=== PATIENT | male | born 1940 | race Caucasian/White ===

== ENCOUNTER 2016-10-31 15:27 | Emergency (ER) | payer MEDICARE, BC ==
[2016-10-31 15:54] VITALS: TEMP 98.4
--- NOTE | 2016-10-31 16:36 | ED.PDOC ---
History of Present Illness - General Chief Complaint: Eye Problems Stated Complaint: possible glass in left eye Time Seen by Provider: 10/31/16 16:33 Source: patient, RN notes reviewed Exam Limitations: no limitations - History of Present Illness Initial Comments: Herbert Peña stated that he was replacing a light bulb then it broke felt something got into his right eye and has flush it with water prior to coming here Denies blurry vision or pain Timing/Duration: abrupt, this afternoon Severity: mild EENT Location: eye (R) Prearrival Treatment: flushing eyes Presenting Symptoms: felt something got into right eye Improving Factors: nothing Worsening Factors: nothing Associated Symptoms: denies symptoms Allergies/Adverse Reactions: Allergies Tuna Flavor Allergy (Verified 12/22/15 02:44) Allergic to tuna Tuna Allergy (Uncoded 12/22/15 07:51) Home Medications: Ambulatory Orders Erythromycin Ophth Oint 1 applic BOTH_EYES BEDTIME 12/20/15 Propranolol HCl 10 mg PO TID PRN 12/20/15 Sildenafil Citrate [Viagra] 100 mg PO PRN PRN 12/20/15 Tramadol HCl 50 mg PO Q4H PRN 12/20/15 Azithromycin Tab [Zithromax Tab] 250 mg PO Q24H #5 tab 12/22/15 levoFLOXacin [Levaquin] 500 mg PO QAM #10 tab 12/22/15 Review of Systems - Review of Systems Constitutional: States: no symptoms reported EENTM: States: see HPI Respiratory: States: no symptoms reported Cardiology: States: no symptoms reported Gastrointestinal/Abdominal: States: no symptoms reported Musculoskeletal: States: no symptoms reported Past Medical History (General) - Patient Medical History Hx Seizures: No Hx Stroke: No Hx Dementia: No Hx Asthma: No Hx of COPD: No Hx Cardiac Disorders: No Hx Congestive Heart Failure: No Hx Pacemaker: No Hx Hypertension: Yes Hx Thyroid Disease: No Hx Diabetes: No Hx Gastroesophageal Reflux: No Hx Renal Disease: No Hx Cancer: Yes - skin Hx of HIV: No Hx Hepatitis C: No Hx MRSA: No Surgical History: other - Vaccination History Hx Tetanus, Diphtheria Vaccination: Yes Hx Influenza Vaccination: No Hx Pneumococcal Vaccination: Yes - Social History Hx Tobacco Use: No Hx Chewing Tobacco Use: No Hx Alcohol Use: No Hx Substance Use: No Hx Substance Use Treatment: No Hx Depression: No Hx Physical Abuse: No Hx Emotional Abuse: No Hx Suspected Abuse: No Family Medical History - Family History Mother Family History: Unknown Living Status: Physical Exam - Physical Exam General Appearance: Alert, Comfortable, No apparent distress Eye Exam: bilateral normal, bilateral other - unable to read eye chart but able to see print closer Ear Exam: bilateral ear: auricle normal, canal normal, TM normal Nasal Exam: normal inspection Throat Exam: normal mouth inspection, pharynx normal Neck: non-tender, full range of motion, supple, normal inspection, trachea midline Cardiovascular/Respiratory: regular rate, rhythm, no M/R/G, normal breath sounds Abdominal Exam: non-tender, no organomegaly Neurologic: alert, normal mood/affect, oriented x 3 Progress - Progress Progress: 10/31/16 16:38 Vital Signs - 8 hr 10/31/16 15:30 Temperature 98.4 F Pulse Rate [ 85 RIGHT BRACHIAL] Respiratory 16 Rate Blood Pressure 178/95 [RIGHT BRACHIAL ] O2 Sat by Pulse 85 L Oximetry - Results/Orders Results/Orders: Right eye irrigated with eyewash then alcaine drops to right eye with fluorescein testing no dye uptake was noted conjunctival cul de sac no foreign body noted.Left orbit x ray no radioopaque fb - EKG/XRAY/CT XRAY: orbit no fb Departure - Departure Clinical Impression: Irritation of left eye Time of Disposition: 17:51 Disposition: Discharge to Home or Self Care Condition: Fair Departure Forms: ED Discharge - Pt. Copy, Patient Portal Self Enrollment Referrals: Tomas Perry MD [Primary Care Provider] - 1-2 Weeks Home Medications: Ambulatory Orders Erythromycin Ophth Oint 1 applic BOTH_EYES BEDTIME 12/20/15 Propranolol HCl 10 mg PO TID PRN 12/20/15 Sildenafil Citrate [Viagra] 100 mg PO PRN PRN 12/20/15 Tramadol HCl 50 mg PO Q4H PRN 12/20/15 Azithromycin Tab [Zithromax Tab] 250 mg PO Q24H #5 tab 12/22/15 levoFLOXacin [Levaquin] 500 mg PO QAM #10 tab 12/22/15
[2016-10-31 16:48] VITALS: BP 160/90; O2SAT 97
--- NOTE | 2016-10-31 17:00 | RAD ---
PROCEDURE: XR ORBITS COMPLETE 4 OR MORE VIEWS CLINICAL HISTORY: 75 years Male possible FB COMPARISON: None. TECHNIQUE: Three views of the orbits. FINDINGS: Dental hardware is visualized. No radiopaque foreign bodies are visualized over the region of the orbits. IMPRESSION: No radiopaque foreign body is identified. Electronically signed by: Tunde Portillo MD 10/31/2016 4:59 PM CDT
== END 2016-10-31 17:59 | disposition home or self-care (01) ==
LOC: ER 15:27
DX: H57.8 Other specified disorders of eye and adnexa (principal); I10 Essential (primary) hypertension; Z85.828 Personal history of other malignant neoplasm of skin; Z91.018 Allergy to other foods

== ENCOUNTER → 2017-08-13 | Outpatient (CLI) | payer MEDICARE | LOC: GMAB 16:28 | PROVIDERS: ATTEND Family Medicine | DX: I10 Essential (primary) hypertension (principal); Z12.5 Encounter for screening for malignant neoplasm of prostate | CPT/HCPCS: 84443; G0103 ==

== ENCOUNTER 2019-09-08 11:27 | Inpatient (IN) | payer MEDICARE ==
--- NOTE | 2019-09-08 12:46 | RAD ---
EXAM DESCRIPTION: Chest,1 View CLINICAL HISTORY: 78 years Male, syncope COMPARISON: 12/22/2015. TECHNIQUE: AP radiograph of the chest was obtained. FINDINGS: Trachea is midline.The cardiomediastinal silhouette is normal in size. The pulmonary vasculature is within normal limits. Left basilar atelectasis. Possible small left pleural effusion. IMPRESSION: Left basilar atelectasis with possible small effusion. Electronically signed by: Tatyana Rosado MD 09/08/2019 12:45 PM CDT
--- NOTE | 2019-09-08 12:48 | CT ---
EXAM DESCRIPTION: Head CLINICAL HISTORY: syncope COMPARISON: None available TECHNIQUE: Contiguous axial images through the head were obtained without intravenous contrast administration. Sagittal and coronal reconstructions were reviewed. FINDINGS: No evidence of acute major vascular territorial infarct or intraparenchymal hemorrhage. No intra-axial or extra-axial fluid collections are identified. The ventricles and cisterns appear normal in caliber. The sella and suprasellar regions appear normal. The structures of the posterior fossa are intact. The globes are intact bilaterally. The visualized paranasal sinuses and mastoid air cells are well-aerated. Review of the bones demonstrates no gross instability. IMPRESSION: No CT evidence of acute intracranial process. This exam was performed according to our departmental dose-optimization program, which includes automated exposure control, adjustment of the mA and/or kV according to patient size and/or use of iterative reconstruction technique. Electronically signed by: Tatyana Rosado MD 09/08/2019 12:46 PM CDT
[2019-09-08] MEDS ORDERED: SODIUM CHLORIDE 0.9% 1000ML 1,000 ML IVS ONE (13:12)
[2019-09-08] MEDS ORDERED: PROMETHAZINE HCL INJ 25 MG in SODIUM CHLORIDE 0.9% 50ML 50 ML IVPB ONE (13:21)
[2019-09-08] MEDS ORDERED: PIPERACILLIN/TAZOBACTAM 3.375 GM in SODIUM CHLORIDE 0.9% 100ML 100 ML IVPB ONE (13:23)
--- NOTE | 2019-09-08 13:37 | ED.PDOC ---
History of Present Illness - General Chief Complaint: Syncope/Near Syncope Stated Complaint: syncope Time Seen by Provider: 09/08/19 11:53 Source: patient Exam Limitations: no limitations - History of Present Illness Initial Comments: The patient is a 78-year-old male presented emergency room secondary to a syncopal episode this morning. He reports it occurred while he was standing outside talking to his friend. He had a breakfast already. He did feel dizzy prior. He did not injure anything. He does have some chronic neck pain primarily to the left that is been present for several years. No known history of any carotid disease or valvular disease. No previous strokes. He is not showing any focal neurological deficits. He is pleasant and cooperative. Tilt vital signs are negative though his blood pressures are somewhat low normal for his age anyway. The patient has had significant urinary tract infections in the past. No chest pain or shortness of breath. No previous episodes of syncope but he has had a couple of dizzy episodes of the last 24 to 36 hours. He reports feeling increased fatigue and malaise over the last 3 days. No real urinary symptoms. He reports that he was out for less than a minute. Timing/Duration: momentarily Severity: moderate Improving Factors: nothing Worsening Factors: nothing Associated Symptoms: malaise, syncope Allergies/Adverse Reactions: Allergies Tuna Flavor Allergy (Verified 12/22/15 02:44) Allergic to tuna Tuna Allergy (Uncoded 12/22/15 07:51) Home Medications: Ambulatory Orders Erythromycin Ophth Oint 1 applic BOTH_EYES BEDTIME 12/20/15 Propranolol HCl 10 mg PO TID PRN 12/20/15 Sildenafil Citrate [Viagra] 100 mg PO PRN PRN 12/20/15 Tramadol HCl 50 mg PO Q4H PRN 12/20/15 Azithromycin Tab [Zithromax Tab] 250 mg PO Q24H #5 tab 12/22/15 levoFLOXacin [Levaquin] 500 mg PO QAM #10 tab 12/22/15 Review of Systems - Review of Systems Constitutional: States: malaise EENTM: States: no symptoms reported Respiratory: States: no symptoms reported Cardiology: States: syncope Gastrointestinal/Abdominal: States: no symptoms reported Genitourinary: States: no symptoms reported Musculoskeletal: States: no symptoms reported Skin: States: no symptoms reported Neurological: States: no symptoms reported Endocrine: States: no symptoms reported All other Systems: No Change from Baseline Past Medical History (General) - Patient Medical History Hx Seizures: No Hx Stroke: No Hx Dementia: No Hx Asthma: No Hx of COPD: No Hx Cardiac Disorders: No Hx Congestive Heart Failure: No Hx Pacemaker: No Hx Hypertension: Yes Hx Thyroid Disease: No Hx Diabetes: No Hx Gastroesophageal Reflux: No Hx Renal Disease: No Hx Cancer: Yes - skin Hx of HIV: No Hx Hepatitis C: No Hx MRSA: No - Vaccination History Hx Tetanus, Diphtheria Vaccination: Yes Hx Influenza Vaccination: Yes Hx Pneumococcal Vaccination: Yes - Social History Hx Tobacco Use: No Hx Chewing Tobacco Use: No Hx Alcohol Use: No Hx Substance Use: No Hx Substance Use Treatment: No Hx Depression: No Hx Physical Abuse: No Hx Emotional Abuse: No Hx Suspected Abuse: No - Activities of Daily Living Hospice Agency (if applicable):: None - Female History Patient is a Female of Child Bearing Age (10 -59 yrs old): No - Triage Comment ED Triage Comment: pt voicing he passed out this morning for a short time, voices that he did not hit his head. pt voices he feels fine now. Family Medical History - Family History Mother Family History: Unknown Living Status: Physical Exam - Physical Exam General Appearance: Alert, Comfortable, No apparent distress Eye Exam: bilateral normal Ears, Nose, Throat: hearing grossly normal, normal ENT inspection, normal pharynx Neck: other - Mild left-sided chronic pain. He reports no new pain. Respiratory: lungs clear, normal breath sounds, no respiratory distress, no accessory muscle use Cardiovascular/Chest: normal peripheral pulses, regular rate, rhythm, no edema Peripheral Pulses: radial,right: 2+, radial,left: 2+ Gastrointestinal/Abdominal: non tender, soft Rectal Exam: deferred Back Exam: no CVA tenderness, no vertebral tenderness Extremity: normal range of motion - Given chronic arthritis, normal inspection, no pedal edema, normal capillary refill Neurologic: soft drink powder mixer II-XII nml as tested, no motor/sensory deficits, alert, normal mood/affect, oriented x 3 Skin Exam: normal color Comments: Vital Signs - 24 hr 09/08/19 09/08/19 09/08/19 11:30 11:40 11:42 Temperature 99.5 F 99.5 F 99.5 F Pulse Rate 83 Pulse Rate [ 83 89 94 H brachial] Respiratory 16 16 16 Rate Blood Pressure 129/60 120/62 126/64 [Left Arm] O2 Sat by Pulse 94 L 96 96 Oximetry 09/08/19 09/08/19 09/08/19 11:44 12:30 13:00 Temperature 99.5 F 100.7 F H Pulse Rate Pulse Rate [ 95 H 76 74 brachial] Respiratory 16 22 16 Rate Blood Pressure 125/61 131/60 115/61 [Left Arm] O2 Sat by Pulse 94 L 92 L 95 Oximetry Progress - Progress Progress: 09/08/19 13:39 The patient is a 78-year-old male presenting after a syncopal episode. Head CT, chest x-ray, telemetry monitoring, EKG are all reassuring. Echocardiogram is pending. PSA is pending. The patient does have a urinary tract infection and a elevated white blood cell count that is consistent with septicemia. Blood cultures and urine cultures are being done. The patient is starting on Zosyn. He was also given a liter of IV fluids. The patient will be admitted for continued care for the above issues. Continue telemetry monitoring. I would recommend for now ambulation with assistance given his recent syncopal episode. Consideration can also be given to carotid Dopplers sometime in the near future. Admitting for continued care. [place] [phone] - Results/Orders Results/Orders: Chest x-ray shows no overt fluid overload. No pneumothorax. No large pneumonia. There is some left lower lobe atelectasis with possible small effusion. EKG showed normal sinus rhythm at 85 bpm. Mild right axis deviation. Normal R wave progression. Criteria is present for LVH. No definitive ST segment or T wave changes indicative of acute ischemia otherwise. Normal QT interval. Echocardiogram is still pending. PSA is still pending. Laboratory Tests 09/08/19 09/08/19 09/08/19 12:00 12:00 12:00 WBC 21.6 H* RBC 4.23 L Hgb 13.9 L Hct 41.6 L MCV 98.4 H MCH 32.8 H MCHC 33.4 RDW 12.6 Plt Count 180 MPV 9.2 Absolute Neuts (auto) Not Reportable Absolute Lymphs (auto) Not Reportable Absolute Monos (auto) Not Reportable Absolute Eos (auto) Not Reportable Neutrophils % Not Reportable Neutrophils % (Manual) 89.0 H Lymphocytes % Not Reportable Lymphocytes % (Manual) 2.0 Monocytes % Not Reportable Monocytes % (Manual) 7.0 Eosinophils % Not Reportable Basophils % Not Reportable Band Neutrophils 2.0 Platelet Estimate Normal Polychromasia 1+ Macrocytosis 1+ PT 10.7 INR 1.08 PTT (SP) 27.9 Sodium 135 Potassium 3.8 Chloride 102 Carbon Dioxide 26 Anion Gap 10.8 L BUN 18 Creatinine 1.23 BUN/Creatinine Ratio 14.6 Random Glucose 160 H Serum Osmolality 275.4 Lactic Acid Calcium 9.8 Magnesium 2.0 Total Bilirubin 1.2 H AST 18 ALT 15 Alkaline Phosphatase 65 Creatine Kinase 17 L CK-MB (CK-2) 0.7 CK-MB (CK-2) % Not Reportable Troponin I 0.02 B-Natriuretic Peptide 69.9 Serum Total Protein 6.6 Albumin 3.8 Globulin 2.8 Albumin/Globulin Ratio 1.4 TSH 0.96 Urine Color Urine Appearance Urine pH Ur Specific [place] Urine Protein Urine Glucose (UA) Urine Ketones Urine Blood Urine Nitrite Urine Bilirubin Urine Urobilinogen Ur Leukocyte Esterase Urine RBC Urine WBC Ur Epithelial Cells Urine Bacteria 09/08/19 09/08/19 12:00 13:00 WBC RBC Hgb Hct MCV MCH MCHC RDW Plt Count MPV Absolute Neuts (auto) Absolute Lymphs (auto) Absolute Monos (auto) Absolute Eos (auto) Neutrophils % Neutrophils % (Manual) Lymphocytes % Lymphocytes % (Manual) Monocytes % Monocytes % (Manual) Eosinophils % Basophils % Band Neutrophils Platelet Estimate Polychromasia Macrocytosis PT INR PTT (SP) Sodium Potassium Chloride Carbon Dioxide Anion Gap BUN Creatinine BUN/Creatinine Ratio Random Glucose Serum Osmolality Lactic Acid 1.7 Calcium Magnesium Total Bilirubin AST ALT Alkaline Phosphatase Creatine Kinase CK-MB (CK-2) CK-MB (CK-2) % Troponin I B-Natriuretic Peptide Serum Total Protein Albumin Globulin Albumin/Globulin Ratio TSH Urine Color Yellow Urine Appearance Sl cloudy Urine pH 5.5 Ur Specific [place] 1.025 Urine Protein 30 Urine Glucose (UA) Negative Urine Ketones Negative Urine Blood Trace-intact H Urine Nitrite Negative Urine Bilirubin Negative Urine Urobilinogen 0.2 Ur Leukocyte Esterase Large H Urine RBC 1-3 Urine WBC >50 H Ur Epithelial Cells 0-1 Urine Bacteria 2+ H Departure - Departure Clinical Impression: Septicemia Syncope Qualifiers: Syncope type: unspecified Qualified Code(s): R55 - Syncope and collapse Urinary tract infection Qualifiers: Urinary tract infection type: acute cystitis Hematuria presence: without hematuria Qualified Code(s): N30.00 - Acute cystitis without hematuria Disposition: Admit Patient Condition: Poor Departure Forms: ED Discharge - Pt. Copy, Patient Portal Self Enrollment Referrals: Tomas Perry MD [Primary Care Provider] - 1-2 Weeks Home Medications: Ambulatory Orders Erythromycin Ophth Oint 1 applic BOTH_EYES BEDTIME 12/20/15 Propranolol HCl 10 mg PO TID PRN 12/20/15 Sildenafil Citrate [Viagra] 100 mg PO PRN PRN 12/20/15 Tramadol HCl 50 mg PO Q4H PRN 12/20/15 Azithromycin Tab [Zithromax Tab] 250 mg PO Q24H #5 tab 12/22/15 levoFLOXacin [Levaquin] 500 mg PO QAM #10 tab 12/22/15 Decision To Admit - Decistion To Admit Decision to Admit Reason: Medical Nature Decision to Admit Date: 09/08/19 Decision to Admit Time: 13:42
[2019-09-08] MEDS ORDERED: KCL 20MEQ/0.45% NS 1,000 ML IVS ONE ×3 (16:59→19:55)
[2019-09-08] MEDS ORDERED: SODIUM CHLORIDE 0.9% (FLUSH) 10 ML SYG IV PRN (17:00)
[2019-09-08] MEDS ORDERED: IV SET AND CAP CHANGE INJ INJ SCH (17:00)
[2019-09-08] MEDS ORDERED: ONDANSETRON INJ 4 MG/2 ML VIAL IV PRN (17:00)
[2019-09-08] MEDS ORDERED: PIPERACILLIN/TAZOBACTAM 3.375 GM VIAL IVPB ONE ×2 (19:04→21:47)
[2019-09-08] MEDS ORDERED: PROPRANOLOL HCL 20 MG TAB ONE (19:05)
[2019-09-08] MEDS ORDERED: SODIUM CHLORIDE 0.9% 100ML 100 ML IVPB ONE ×2 (19:07→21:47)
[2019-09-08] MEDS: PIPERACILLIN/TAZOBACTAM 3.375 GM in SODIUM CHLORIDE 0.9% 100ML 100 ML IVPB SCH (19:46)
[2019-09-08] MEDS: SODIUM CHLORIDE 0.9% (FLUSH) 10 ML SYG IV SCH (20:10)
[2019-09-08] MEDS: ENOXAPARIN SODIUM 40 MG/0.4 ML SYG SUBCU SCH (20:14)
[2019-09-08] MEDS ORDERED: PROPRANOLOL HCL 5 MG PO SCH (21:00)
[2019-09-08] MEDS ORDERED: KCL IVS ONE (21:04)
[2019-09-08] MEDS ORDERED: [UNRECOGNIZED DRUG - OTHER] IVS ONE (21:04)
--- NOTE | 2019-09-08 21:09 | PCM.H&P ---
History of Present Illnes - History of Present Illness Reason for Visit: Syncope with questionable LOC History of Present Illness: 78 yo male patient that presented to ER d/t weakness and unwitnessed loss of consciousness. He has had progressive weakness with syncopal episondes that have worsened over the last few weeks. He lives alone and has had difficulty getting around. Today he woke up slupped on the [place]. He does not remember falling or slipping, and he appears to have no obvious traumatic injuries. He also has a significant history of UTIs. Previously he saw Dr. Perry and has seen Dr. Valdez at [facility], but does not know who his PCP is and cannot remember the last time he saw a provider, but he thinks it was in January of last year, although records from [facility] reveal he saw Dr. Valdez in 03/2019. In ER he was found to have a UTI and his head CT was negative for any acute injury. Urine culture was done as well as blood cultures. He was given zosyn and was admitted in stable condition. - Past Medical History Cardiac: HTN [employer]: Dementia - essential tremors Gastrointestinal: GERD - Past Family History Family History: CVA - Past Social History Smoke: No Alcohol: None Drugs: None Lives: Alone Review of Systems - Review of Systems Constitutional: States: Weakness, Malaise. Denies: Fever, Chills Neurological: States: Weakness, Incoordination, Confusion, Other - syncope; essential tremors - Medications/Allergies Allergies/Adverse Reactions: Allergies Allergy/AdvReac Type Severity Reaction Status Date / Time Tuna Flavor Allergy Verified 09/08/19 15:07 Tuna Allergy Uncoded 12/22/15 07:51 Medications: Current Medications Propranolol 5mg qid Exam - Exam Vital Signs: Vital Signs (72 hours) 09/08/19 09/08/19 09/08/19 11:30 11:40 11:42 Temperature 99.5 F 99.5 F 99.5 F Pulse Rate 83 Pulse Rate [ 83 89 94 H brachial] Respiratory 16 16 16 Rate Blood Pressure 129/60 120/62 126/64 [Left Arm] O2 Sat by Pulse 94 L 96 96 Oximetry 09/08/19 09/08/19 09/08/19 11:44 12:30 13:00 Temperature 99.5 F 100.7 F H Pulse Rate Pulse Rate [ 95 H 76 74 brachial] Respiratory 16 22 16 Rate Blood Pressure 125/61 131/60 115/61 [Left Arm] O2 Sat by Pulse 94 L 92 L 95 Oximetry 09/08/19 09/08/19 09/08/19 14:00 15:00 15:05 Temperature 98.3 F 98.3 F 98.3 F Pulse Rate 69 78 Pulse Rate [ 69 78 65 brachial] Respiratory 16 16 16 Rate Blood Pressure 116/63 125/64 124/71 [Left Arm] O2 Sat by Pulse 96 96 97 Oximetry 09/08/19 09/08/19 15:11 19:00 Temperature 98.3 F 100.1 F H Pulse Rate Pulse Rate [ 65 71 brachial] Respiratory 16 16 Rate Blood Pressure 124/71 120/76 [Left Arm] O2 Sat by Pulse 97 98 Oximetry General: Alert, Cooperative - oriented to person only HEENT: Atraumatic, PERRLA, Mucous membr. moist/pink Lungs: Clear to auscultation Cardiovascular: Regular rate, No murmurs Abdomen: Normal bowel sounds, Soft, No tenderness Extremities: No clubbing, No cyanosis Skin: No rashes Neurological: Other - awake alert; gets confused easily; has a difficult time r ecounted the last few day to last few months; equal upper extremety strength, but unable to stand on his own; was found partially on bed and partially on floor and required assistance to get back in bed Psych/Mental Status: Mood NL Assessment/Plan - Assessment/Plan Assessment: 1. Sepsis r/t UTI with concerns for prostatitis. WBC on admit was 21,600 temp of 100.7 HR 95 2. Sycope withunwitness loss of consciousness. 3. High risk for Covid19 d/t age, elevated temp, and CXR 4. Gerd 5. HTN Plan: Patient has been admitted ot the hospital in stable condition. His home meds have been restarted and he will get fluids overnight. Will continue Zosyn and follow cultures. will need to speak with Dr. Vasquez, OMER, for recommendations on antibiotics and length of treatment. Lovenox started for DVT prophylaxis and PPI for PUD prophylaxis. [facility] services program associate consulted for discharge planning and Physical Therapy for safety.
[2019-09-08] MEDS: ACETAMINOPHEN 325 MG TAB PO PRN (23:00)
[2019-09-09] MEDS: PIPERACILLIN/TAZOBACTAM 3.375 GM in SODIUM CHLORIDE 0.9% 100ML 100 ML IVPB SCH ×4 (01:38→20:17)
[2019-09-09] MEDS: OMEPRAZOLE CAP 20 MG CAP PO SCH (05:49)
--- NOTE | 2019-09-09 06:53 | RAD ---
EXAM: XR Chest, 1 View CLINICAL HISTORY: The patient is 78 years old and is Male; leukocytosis TECHNIQUE: Single view of the chest. COMPARISON: September 08, 2019 12:14 PM. FINDINGS: Lungs: Retrocardiac consolidation and/or atelectasis, new. No pulmonary vascular congestion. Pleural space: No pneumothorax. Heart: The cardiac silhouette is enlarged versus artifact of AP technique. Cardiomediastinal silhouette is not significantly changed given the differences in technique. Mediastinum: See above. Bones/joints: The bones and joints are unchanged as visualized. Upper abdomen: No free air in the visualized upper abdomen. IMPRESSION: Retrocardiac consolidation and/or atelectasis, new. Electronically signed by: Cristal Bauman MD 09/09/2019 6:52 AM CDT
[2019-09-09] MEDS ORDERED: SODIUM CHL 0.9% 100ML MINI-BAG 100 ML IVPB ONE (07:38)
[2019-09-09] MEDS ORDERED: PIPERACILLIN/TAZOBACTAM 3.375 GM VIAL IVPB ONE (07:38)
[2019-09-09] MEDS ORDERED: PROPRANOLOL HCL 20 MG TAB ONE (08:35)
[2019-09-09] MEDS: PROPRANOLOL HCL 20 MG TAB PO SCH ×4 (09:09→20:22)
[2019-09-09] MEDS: SODIUM CHLORIDE 0.9% (FLUSH) 10 ML SYG IV SCH ×2 (09:09→20:22)
--- NOTE | 2019-09-09 10:54 | CT ---
EXAM DESCRIPTION: Abdomen/Pelvis w/wo Contrast: Computed Tomography. CLINICAL HISTORY: prostatitis? COMPARISON: CT abdomen November 2015. TECHNIQUE: Spiral-axial scans at 5 mm intervals through the abdomen and pelvis before and after 75 mL Optiray 320 nonionic IV contrast. No oral contrast. Coronal and sagittal 2.0 mm reconstructions. 5 mm Delayed helical-axial scans, liver through the pubic symphysis. No adverse reactions. Total Exam DLP 2365 mGy - cm. This exam was performed according to our departmental CT dose-optimization program which includes automated exposure control, adjustment of the mA and/or kV according to patient size and/or use of iterative reconstruction technique; to reduce radiation dose to as low as reasonably achievable (ALARA). FINDINGS: Lung bases and pleura: Small bilateral pleural effusions larger on the left. Bibasilar atelectasis. Liver, Stomach, Spleen, Adrenal Glands: 2.8 cm nonenhancing mass in the subcapsular medial segment of the left hepatic lobe with no calcifications, but protruding through the anterior capsule +50-55 Hounsfield units. Stable since the prior study. Right lobe borderline enlarged. Stomach slightly enlarged and distended but no gastroduodenal obstruction. Other solid organs are negative. Pancreas, Gallbladder, Ducts: Septated gallbladder. Duct and pancreas negative.. Kidneys and Ureters: Irregular regions of enhancement and nonenhancement in the left kidney with minimal stranding fatty stranding. This is not seen on the right kidney. But there is bilateral thickening in the paracolic gutters with fluid on the left. 6 cm dilated left renal pelvis. 4.8 cm cyst on the right. Cysts bilaterally. New 4 mm radiodense stone in the mid collecting system of the right kidney with no hydronephrosis. No radiodense stones in the left kidney but minimal hydronephrosis.. Moderate left hydroureter with increased distention proximal to distal, and abrupt transition from normal caliber to dilated proximal ureter distal to the dilated renal pelvis previously described. No significant change since the prior study. 1 cm stone in the dilated pelvis on the prior study no longer present. Right ureter contains IV contrast and is unremarkable.. Mesentery: Thickening of the pericolic fascia and gutters and fatty stranding left pararenal space as described. This has progressed slightly since the prior study. No free air or free fluid.. Pelvic Organs: Prostate is markedly enlarged with superior margin not as well-defined and inflammatory changes in the fat abutting the lateral and superior gland and the interface with the base of the urinary bladder. Irregular enhancement and central calcifications. Mass effect on the base of the urinary bladder. Volume is 60.7 mL. Dilated left ureterovesical junction is stable. Millimeters radiodense stone in the base of the urinary bladder may have been the larger stone seen in the dilated left renal pelvis on the prior study. Bladder is distended with wall thickening and capsule is slightly lobulated. No IV contrast on the delayed images. Right ureterovesical junction is unremarkable. No free fluid. Aorta: Atherosclerotic calcifications. Moderate ectasia. Small Bowel: No distended segments. Minimal gas. Terminal Ileum/Cecum: Negative. No inflammatory changes. Appendix not seen. Colon: Cecum and proximal colon distended by gas. Diverticula beginning in the mid: And continuing distally to the sigmoid colon. Minimal redundancy of the sigmoid colon. No complications. Spine and Bony Pelvis: Lumbar scoliosis and thoracolumbar spondylosis. Bilateral hip arthrosis and arthrosis in the SI joints. Abdominal Wall/Back Soft Tissues: Umbilical diastases but no incarcerated bowel. Bilateral lymph nodes abutting the inguinal canal with proximal right inguinal fatty hernia with no included bowel. IMPRESSION: 1. Marked enlargement of the prostate gland stable since the prior study, but new inflammatory changes in the fat around the superior and superior lateral margins of the gland and the interface with the urinary bladder, consistent with the clinical diagnosis. 2. Delayed and initial heterogeneous contrast enhancement in the left kidney and possible inflammatory changes in the left perirenal fat raises concern for pyelonephritis. Chronic left renal hydronephrosis and hydroureter since November 2015. Calculus in the dilated left renal pelvis on the prior study is now interpreted to be located in the gravity dependent urinary bladder base. Urinary bladder is distended. New 4 mm radiodense stone in the right kidney not obstructing. 3. Enlarging bilateral pleural effusion and increasing abdominal fluid since the prior study. 4. Chronic distal colon and sigmoid diverticulosis with no complications. 2.8 cm circumscribed mass in the medial segment left hepatic lobe protruding slightly through the hepatic capsule at the dome is stable. CRITICAL COMMUNICATION: The critical value was communicated directly by Dr. Comer via phone call, with Ms. Merlyn Esqueda RN-[employer]C [employer], at approximately 1040 hours, on September 09, 2019. Electronically signed by: Vidal Comer MD 09/09/2019 10:52 AM CDT
--- NOTE | 2019-09-09 14:34 | US ---
EXAM DESCRIPTION: Carotid Duplex: ULTRASOUND. CLINICAL HISTORY: 78 years Male syncope COMPARISON: CT scan of abdomen and pelvis from the same visit. TECHNIQUE: Transcutaneous scanning utilizing ball-scale and Doppler modes to evaluate the bilateral carotid systems and vertebral arteries. Percentage of diameter of stenosis or no stenosis recorded will be based upon NASCET criteria. FINDINGS: Peak systolic/end diastolic (CM-Sec) CCA Right 85/0 Left 72/8. ICA Right proximal 38/8, distal 84/20. Left proximal 48/10, Distal 51/9. Vertebral Right 38/8 Left 31/9. ECA (PS Only) Right 72 left 72. ICA/CCA peak systolic ratio: Right 1.0 Left 0.7 ICA/CCA end diastolic ratio: Right n/a Left 1.1 Vertebral arteries: antegrade flow. Comments: Minimal atherosclerotic calcifications bilateral common carotid bifurcations. IMPRESSION: 1. Doppler evaluation of the bilateral carotid systems and vertebral arteries shows no hemodynamically significant stenoses (less than 70%). 2. No significant amount of plaque in the carotid arteries bilaterally. Bilateral vertebral arteries showed antegrade-cephalad flow. Electronically signed by: Vidal Comer MD 09/09/2019 2:32 PM CDT
[2019-09-09] MEDS: ACETAMINOPHEN 325 MG TAB PO PRN (20:21)
[2019-09-09] MEDS: ENOXAPARIN SODIUM 40 MG/0.4 ML SYG SUBCU SCH (20:22)
[2019-09-09] MEDS: BIFIDOBACTERIUM INFANTIS 4 MG CAP PO SCH (22:04)
[2019-09-10] MEDS: PIPERACILLIN/TAZOBACTAM 3.375 GM in SODIUM CHLORIDE 0.9% 100ML 100 ML IVPB SCH ×4 (01:38→20:33)
[2019-09-10] MEDS: OMEPRAZOLE CAP 20 MG CAP PO SCH (06:05)
[2019-09-10] MEDS: PROPRANOLOL HCL 20 MG TAB PO SCH ×4 (08:51→20:34)
[2019-09-10] MEDS: BIFIDOBACTERIUM INFANTIS 4 MG CAP PO SCH ×2 (08:51→20:34)
[2019-09-10] MEDS: SODIUM CHLORIDE 0.9% (FLUSH) 10 ML SYG IV SCH ×2 (08:51→20:34)
--- NOTE | 2019-09-10 09:10 | PN ---
SUPERVISING PHYSICIAN: Lucius Vadlez MD DATE: 09/09/19 SUBJECTIVE: The patient is sitting up in his bed, feels much better than yesterday. His abdominal pain is gone and he said no nausea or vomiting. He has no shortness of breath. He denies chest pain. OBJECTIVE: VITAL SIGNS: Temperature 98, heart rate 64, blood pressure 110/65, respiratory rate 18, oxygen saturation 98% on room air. RESPIRATORY: Essentially clear to auscultation bilaterally. somewhat diminished at the bases. CARDIAC: Regular rate and rhythm. GI: Abdomen soft, nondistended, non-tender except he is slightly tender in the suprapubic area. Bowel sounds are positive. NEUROLOGIC: He is awake, alert, and oriented x3. LABORATORY: WBC has improved to 18,200 with hemoglobin 12.6, hematocrit of 37.7. Sodium is slightly low at 133 with potassium of 4.1, chloride 103. BUN is 22, creatinine has improved slightly to 1.16, magnesium 1.9, bilirubin 1.5. Total PSA is 20.19. Preliminary blood cultures show no growth at 24 hours. Urine culture is pending. CAROTIC ARTERY ULTRASOUND: 1. Doppler evaluation of the bilateral carotid systems and vertebral arteries show no hemodynamically significant stenosis. 2. No significant amount of plaque in the carotid arteries bilaterally. Bilateral vertebral arteries show integrate cephalad flow. RADIOLOGY: Chest x-ray shows retrocardiac consolidation and atelectasis that is new. ABDOMINAL/PELVIS CT: 1. Marked enlargement of prostate gland, stable since prior study but new inflammatory changes in the fat around the superior and superior lateral margins of the gland and the interface with the urinary bladder consistent with the clinical diagnosis. 2. Delayed and initial heterogeneous contrast enhancement of the left kidney and possible inflammatory changes in the left perirenal fat raises concerns for pyelonephritis. Chronic left renal hydronephrosis and hydroureter since November 2015. Calculus in the dilated left renal pelvis on the prior study is now interpreted to be located in the gravity dependent urinary bladder base. Urinary bladder is distended. New 4 mm radiodense stone is I the right kidney, nonobstructing. 3. Enlarging bilateral pleural effusion and increasing abdominal fluid since the prior study. 4. Chronic distal colon and sigmoid diverticulosis with no complications. 2.8 cm circumscribed mass in the medial segment of the left hepatic lobe protruding slightly through the hepatic capsule at the dome is stable. All other labs and films have been reviewed via the EMR. IMPRESSION: 1. Sepsis related to urinary tract infection with prostatitis. WBCs on admission were 21,600, [id number], heart rate 95. 2. Pyelonephritis with sepsis. 3, Syncope with unwitnessed loss of consciousness. His carotid sonogram is negative. 4. High risk for Covid-19 due to age and elevated temperature and chest x-ray. 5. Gastroesophageal reflux disease. 6. Hypertension. PLAN: We will continue present supportive care including his present antibiotics of Zosyn. He remains in isolation until his Covid-19 results are returned. There are moderate concerns for pneumonia and have encouraged good pulmonary hygiene including his incentive spirometry. At this point, we will continue with the Zosyn and monitor cultures as the become available. His labs will be repeated in the morning and we will continue monitor him closely and follow as needed. #[id number] [facility]
--- NOTE | 2019-09-10 16:42 | PN ---
SUPERVISING PHYSICIAN: Lucius Valdez MD DATE: 09/10/19 SUBJECTIVE: The patient is sitting up in bed, much more alert and oriented today. Nurse reports that he has walked in his room without difficulty. He can actually answer questions appropriately today. We discussed his discharge plan. He has no complaints of nausea, vomiting, diarrhea or constipation. He does have some diarrhea but that has improved. OBJECTIVE: VITAL SIGNS: Temperature 98.4, heart rate 68, blood pressure 131/64, respirations 18, oxygen saturation 96% on room air. RESPIRATORY: Essentially clear to auscultation bilaterally. CARDIAC: Regular rate and rhythm.. GI: Abdomen soft, nondistended, non-tender. Bowel sounds are positive. NEUROLOGIC: He is awake, alert, and oriented x3. LABORATORY: WBC has improved to 11,400 with hemoglobin 13, hematocrit of 38.9. Chemistries are unremarkable. Preliminary blood cultures show no growth at 48 hours. His rotavirus is negative. Stool was positive for fecal leukocytes. C- difficile was negative for antigen and toxin. Stool culture is pending. All other labs and films have been reviewed via the EMR. IMPRESSION: 1. Sepsis related to urinary tract infection with prostatitis. WBCs on admission were 21,600, [id number], heart rate 95. 2. Pyelonephritis with sepsis. 3, Syncope with unwitnessed loss of consciousness. His carotid sonogram is negative. 4. High risk for Covid-19 due to age and elevated temperature and chest x-ray. 5. Gastroesophageal reflux disease. 6. Hypertension. PLAN: We will continue present supportive care. Will await his Covid-19 results, although if patient is stable enough and has good clinical recovery, we can send him home for self-isolation as he said he does not have any contact with anyone. I have ordered labs for in the morning. He is improving well so no further testing will be needed at this point. Encouraged good pulmonary hygiene. We will continue to monitor his cultures. We will follow and treat as needed. #[id number] [facility]
[2019-09-10] MEDS: ENOXAPARIN SODIUM 40 MG/0.4 ML SYG SUBCU SCH (20:34)
[2019-09-11] MEDS: PIPERACILLIN/TAZOBACTAM 3.375 GM in SODIUM CHLORIDE 0.9% 100ML 100 ML IVPB SCH ×2 (01:37→07:34)
[2019-09-11] MEDS: OMEPRAZOLE CAP 20 MG CAP PO SCH (06:21)
[2019-09-11] MEDS: BIFIDOBACTERIUM INFANTIS 4 MG CAP PO SCH (09:13)
[2019-09-11] MEDS: PROPRANOLOL HCL 20 MG TAB PO SCH (09:13)
[2019-09-11] MEDS: SODIUM CHLORIDE 0.9% (FLUSH) 10 ML SYG IV SCH (09:13)
[2019-09-11 13:27] VITALS: BP 135/69; TEMP 98.4; O2SAT 97
--- NOTE | 2019-09-11 13:46 | DS ---
SUPERVISING PHYSICIAN: Lucius Valdez MD DISCHARGE DIAGNOSES: 1. Sepsis related to urinary tract infection with prostatitis. WBCs on admission were 21,600, [id number], heart rate 95. Urine culture has come back positive for enterococcus faecalis and it is pansensitive. 2. Pyelonephritis with sepsis. 3, Syncope with unwitnessed loss of consciousness. His carotid sonogram is negative. 4. High risk for Covid-19 due to age and elevated temperature and chest x-ray, still awaiting results. His chest x-ray is stable and he has had no temperature since admission. 5. Gastroesophageal reflux disease. 6. Hypertension. 7. Diarrhea that has improved with a history of constipation. 8. History of essential tremors, on propranolol. HISTORY OF PRESENT ILLNESS: This is a 78 year-old male patient who presented to the Emergency Room after complaining of weakness and an unwitnessed loss of consciousness. He has had progressive weakness with syncopal episodes that have worsened over the last few weeks. He lives alone and has had difficulty getting around. On the date of admission, he woke up slumped on the floor. He does not remember falling or slipping and there was no obvious traumatic injuries. He has a significant history of urinary tract infections. Previously he saw Dr. Perry as well as Dr. Hadley but at the time of admission, he did not know who his primary care physician was and could not remember the last time he saw a provider. He was quite confused but he did think his last physician visit was in January of last year. In the Emergency Room he was found to have a urinary tract infection and his head CT was negative for any acute injury. Urine culture was done as well as blood cultures. He was given Zosyn as well as fluids and was admitted to the Floor. HOSPITAL COURSE: The patient was admitted in stable condition. His home medications were restarted and he got fluids overnight, the Zosyn was continued and his cultures were followed. Lovenox was given for DVT prophylaxis and a PPI for ulcer prophylaxis. Clinically, he progressively improved over the next several days. It was found on his abdomen/pelvis CT that in addition to prostatitis and urinary tract infection he also had pyelonephritis. Covid-19 testing was ordered initially and at the time of discharge his results had not come back but he has not had a fever since admission. He did have a bout of diarrhea during his stay and stool studies were done, his C-difficile was negative. His rotavirus was negative. He was positive for fecal WBCs. He had good pulmonary hygiene including incentive spirometry. His diarrhea resolved. His WBCs normalized and he will be discharged home today in stable condition. LABORATORY: His WBCs were 21,600 and today are 10,200. Hemoglobin and hematocrit have been stable at 13.4 and 39.4 respectively. He continues to have a left shift on his differential but it has progressively improved. His electrolytes are unremarkable. At one point, his bilirubin was elevated as high at 1.5, today it is 0.6. His PSA was 20.19. Urinalysis showed trace of intact urine blood with a large amount of urine leukocyte esterase. Urine WBCs were greater than 50 and he had 2+ urine bacteria. His O&P stool study is pending. Stool culture is pending. Stool for occult blood was positive. Covid-19 is pending. His urine culture was positive for enterococcus faecalis and was pansensitive. His chest x-ray this morning showed a stable chest. Carotid artery ultrasound showed the followin. Doppler evaluation of bilateral carotid systems and vertebral arteries show no hemodynamically significant stenosis, less than 70%. 2. No significant amount of plaque in the carotid arteries bilaterally. Bilateral vertebral arteries show antegrade cephalad flow. Head CT was negative for any acute intracranial process. DISCHARGE PLAN: The patient will be discharged home in stable condition. He was able to ambulate around in his room without any problem. He was steady on his feet. He is to resume his previous diet and increase his activity as tolerated. He is to followup with Dr. Hadley via Telehealth visit on September 20, 2019 at 2:15 PM. He does understand it is a Telehealth visit. In addition to his home medications, he is to have Align twice a day as well as ciprofloxacin twice a day for 14 days. He is to return to the hospital and followup with Dr. Hadley for any problems or complications. DISCHARGE MEDICATIONS: 1. Propranolol. 2. Align. 3. Ciprofloxacin. #[id number] [facility]
== END 2019-09-11 14:17 | disposition home or self-care (01) | DRG 872 ==
LOC: ER 11:27 → MS 14:43 → OBSVTOIN 14:43 → MS 17:13
PROVIDERS: ADMIT Nurse Practitioner Acute Care; ATTEND Nurse Practitioner Acute Care
PROC: BW2110Z Computerized Tomography (CT Scan) of Abdomen and Pelvis using Low Osmolar Contrast, Unenhanced and Enhanced (ICD-10-PCS; principal; 2019-09-09)
DX: A41.9 Sepsis, unspecified organism (principal); N12 Tubulo-interstitial nephritis, not specified as acute or chronic; N41.0 Acute prostatitis; N39.0 Urinary tract infection, site not specified; R55 Syncope and collapse; K21.9 Gastro-esophageal reflux disease without esophagitis; I10 Essential (primary) hypertension; R19.7 Diarrhea, unspecified; G25.0 Essential tremor; F03.90 Unspecified dementia, unspecified severity, without behavioral disturbance, psychotic disturbance, mood disturbance, and anxiety; Z03.818 Encounter for observation for suspected exposure to other biological agents ruled out

== ENCOUNTER → 2019-10-03 | Outpatient (CLI) | payer MEDICARE | LOC: GMAE 10:34 | PROVIDERS: ATTEND Family Medicine | DX: Z12.5 Encounter for screening for malignant neoplasm of prostate (principal); I10 Essential (primary) hypertension | CPT/HCPCS: 84443; G0103 ==

== ENCOUNTER 2020-01-01 14:11 | Inpatient (IN) | payer MEDICARE ==
--- NOTE | 2020-01-01 14:28 | ED.PDOC ---
History of Present Illness - General Time Seen by Provider: 01/01/20 14:11 Information Source: patient, RN notes reviewed, Vital Signs reviewed, old records Exam Limitations: no limitations - History of Present Illness Initial Comments: Pleasant 79 yo male comes in with 4 days of brown, liquid diarrhea. States 2 weeks ago was diagnosed with cystitis. Was discharged on Bactrim, but this was switched to amoxicillin when cultures came back. He has 2 days left of current antibiotics. Also compalins of LLQ pain. no fever, no black or bloody bm. no hx of c. diff. Diarrhea is easing up. no n/v. Abdominal Pain Onset Location: LLQ Pain Radiation: no radiation Quality: moderate Timing/Duration: days Associated Symptoms: diarrhea Review of Systems - Review of Systems Constitutional: Denies: chills, fever EENTM: Denies: blurred vision, throat pain, mouth pain Respiratory: Denies: cough, short of breath Cardiology: Denies: chest pain, palpitations, syncope Gastrointestinal/Abdominal: States: abdominal pain, diarrhea. Denies: nausea, vomiting Genitourinary: Denies: dysuria, frequency, hematuria Musculoskeletal: Denies: back pain, joint pain, muscle pain Skin: Denies: rash Neurological: Denies: headache, numbness, paresthesia, tingling Endocrine: Denies: unexplained weight gain, unexplained weight loss Hematologic/Lymphatic: Denies: easy bleeding, easy bruising Past Medical History (General) - Patient Medical History Hx Seizures: No Hx Stroke: No Hx Dementia: No Hx Asthma: No Hx of COPD: No Hx Cardiac Disorders: No Hx Congestive Heart Failure: No Hx Pacemaker: No Hx Hypertension: Yes Hx Thyroid Disease: No Hx Diabetes: No Hx Gastroesophageal Reflux: No Hx Renal Disease: No Hx Cancer: Yes - skin Hx of HIV: No Hx Hepatitis C: No Hx MRSA: No - Vaccination History Hx Tetanus, Diphtheria Vaccination: Yes Hx Influenza Vaccination: Yes Hx Pneumococcal Vaccination: Yes - Social History Hx Tobacco Use: No Hx Chewing Tobacco Use: No Hx Alcohol Use: No Hx Substance Use: No Hx Substance Use Treatment: No Hx Depression: No Hx Physical Abuse: No Hx Emotional Abuse: No Hx Suspected Abuse: No Family Medical History - Family History Mother Family History: Unknown Living Status: Physical Exam - Physical Exam General Appearance: Alert, Comfortable, No apparent distress, Well Developed, Well Groomed, Well Hydrated, Well Nourished Eyes, Ears, Nose, Throat Exam: PERRL/EOMI, normal ENT inspection, TMs normal, other - poor dentition Neck: non-tender, full range of motion, supple, normal inspection Respiratory: chest non-tender, lungs clear, normal breath sounds, no respiratory distress, no accessory muscle use Cardiovascular/Chest: normal peripheral pulses, regular rate, rhythm, no edema, no gallop, no JVD, no murmur Peripheral Pulses: 2+ Gastrointestinal/Abdominal: normal bowel sounds, non tender, soft, no organome cleve, no pulsatile mass Rectal Exam: deferred Back Exam: normal inspection, no CVA tenderness, no vertebral tenderness Extremity: normal range of motion, non-tender, normal inspection, no pedal edema 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 diff, colitis. 01/01/20 16:00 ct abd/pelvis: 1. Right-sided hydronephrosis and hydroureter with obstructing calculus at the right UVJ measuring 4 mm. 2. There is redemonstration of hydronephrosis of the left kidney with persistent dilation of the left ureter. This is unchanged dating back to 2016. 3. The urinary bladder is dilated. There is questionable wall thickening. This could relate to chronic outlet obstruction. There is an enlarged prostate which favors the diagnosis of chronic outlet obstruction. 4. There is extensive diverticulosis with an area of fat stranding in the proximal sigmoid colon suspicious for acute uncomplicated diverticulitis. There are couple of prominent lymph nodes noted adjacent to the area of fat stranding. For this reason, a colonoscopy is recommended when the patient's acute symptoms resolve. patient positive for c. diff, will get blood culture. elevated lactic acid, will slowly hydrate. will start oral vancomycin. - Results/Orders Results/Orders: The data reviewed when caring for this patient included: nurse notes, prior records, etc. The history and assessments from nurses notes were reviewed and considered, and the patient's home medication list was also reviewed and considered. My assessment and the results of testing completed here in the ED were discussed with the patient/family. All questions were answered, and they express understanding of my assessment and the plan. Patient admitted to floor in stable condition. Rosy RigobertoDO #[id number] 01/01/20 14:26 Hold Metformin x 48Hrs [id number] 01/01/20 15:53 BLOOD CULTURE Stat 01/01/20 16:01 ED Intent to Admit Routine Laboratory Results WBC 22.8 K/mm3 (4.8-10.8) H* 01/01/20 14:43 RBC 4.24 M/mm3 (4.70-6.10) L 01/01/20 14:43 Hgb 13.7 gm/dL (14.0-18.0) L 01/01/20 14:43 Hct 41.1 % (42.0-52.0) L 01/01/20 14:43 MCV 97.1 fl (80.0-94.0) H 01/01/20 14:43 MCH 32.5 pg (27.0-31.0) H 01/01/20 14:43 MCHC 33.4 g/dL (33.0-37.0) 01/01/20 14:43 RDW 13.5 % (11.5-14.5) 01/01/20 14:43 Plt Count 275 K/mm3 (130-400) 01/01/20 14:43 MPV 8.8 fl (7.40-10.4) 01/01/20 14:43 Absolute Neuts (auto) Not Reportable 01/01/20 14:43 Absolute Lymphs (auto) Not Reportable 01/01/20 14:43 Absolute Monos (auto) Not Reportable 01/01/20 14:43 Absolute Eos (auto) Not Reportable 01/01/20 14:43 Neutrophils % Not Reportable 01/01/20 14:43 Neutrophils % (Manual) 82.0 % (42.0-78.0) H 01/01/20 14:43 Lymphocytes % Not Reportable 01/01/20 14:43 Lymphocytes % (Manual) 5.0 % 01/01/20 14:43 Monocytes % Not Reportable 01/01/20 14:43 Monocytes % (Manual) 4.0 % 01/01/20 14:43 Eosinophils % Not Reportable 01/01/20 14:43 Basophils % Not Reportable 01/01/20 14:43 Band Neutrophils 9.0 % (0-2) H 01/01/20 14:43 Platelet Estimate Normal (NORMAL) 01/01/20 14:43 Normal RBC Morphology 1+aniso 01/01/20 14:43 Sodium 138 mmol/L (135-145) 01/01/20 14:43 Potassium 3.3 mmol/L (3.6-5.0) L 01/01/20 14:43 Chloride 104 mmol/L (101-111) 01/01/20 14:43 Carbon Dioxide 22 mmol/L (21-31) 01/01/20 14:43 Anion Gap 15.3 (12-18) 01/01/20 14:43 BUN 21 mg/dL (7-18) H 01/01/20 14:43 Creatinine 1.30 mg/dL (0.6-1.3) 01/01/20 14:43 BUN/Creatinine Ratio 16.2 (10-20) 01/01/20 14:43 Random Glucose 142 mg/dL (70-105) H 01/01/20 14:43 Serum Osmolality 281.1 mOsm/L (275-295) 01/01/20 14:43 Lactic Acid 2.6 mmol/L (0.5-2.2) H* 01/01/20 15:04 Calcium 9.9 mg/dL (8.4-10.2) 01/01/20 14:43 Total Bilirubin 0.6 mg/dL (0.2-1.0) 01/01/20 14:43 AST 18 IU/L (10-42) 01/01/20 14:43 ALT 15 IU/L (10-60) 01/01/20 14:43 Alkaline Phosphatase 79 IU/L (42-121) 01/01/20 14:43 Serum Total Protein 7.4 gm/dL (6.4-8.2) 01/01/20 14:43 Albumin 3.6 g/dl (3.2-5.5) 01/01/20 14:43 Globulin 3.8 gm/dL (2.3-3.5) H 01/01/20 14:43 Albumin/Globulin Ratio 0.9 (1.1-1.9) L 01/01/20 14:43 Urine Color Yellow (Yellow) 01/01/20 15:17 Urine Appearance Clear (Clear) 01/01/20 15:17 Urine pH 5.5 (4.5-7.8) 01/01/20 15:17 Ur Specific Epps 1.020 (1.005-1.030) 01/01/20 15:17 Urine Protein Negative mg/dL 01/01/20 15:17 Urine Glucose (UA) Negative mg/dL (Negative) 01/01/20 15:17 Urine Ketones Negative mg/dL (NEGATIVE) 01/01/20 15:17 Urine Blood Negative (Negative) 01/01/20 15:17 Urine Nitrite Negative 01/01/20 15:17 Urine Bilirubin Negative (NEGATIVE) 01/01/20 15:17 Urine Urobilinogen 0.2 mg/dL (0.2-1.0) 01/01/20 15:17 Ur Leukocyte Esterase Trace (Negative) H 01/01/20 15:17 Urine RBC 0 /hpf 01/01/20 15:17 Urine WBC 1-3 /hpf 01/01/20 15:17 Ur Epithelial Cells 0 /hpf 01/01/20 15:17 Urine Bacteria 0 01/01/20 15:17 C. difficile Tox (PCR) Cancelled 01/01/20 15:48 Departure - Departure Clinical Impression: C. difficile colitis, Diverticulitis Time of Disposition: 16:01 Disposition: Admit Patient Condition: Fair Diet: bland diet Referrals: MAK FAGAN MD [Primary Care Provider] - 1-2 Days Home Medications: Ambulatory Orders Propranolol HCl 10 mg PO QID PRN 12/20/15 Amoxicillin 875 mg PO BID 01/01/20 Finasteride 5 mg PO DAILY 01/01/20 Tamsulosin HCl [Flomax] 0.4 mg PO DAILY 01/01/20 Decision To Admit - Decistion To Admit Decision to Admit Reason: Medical Nature Decision to Admit Date: 01/01/20 Decision to Admit Time: 16:01
[2020-01-01] MEDS ORDERED: SODIUM CHLORIDE 0.9% 500ML 500 ML IVS ONE (15:02)
[2020-01-01] MEDS ORDERED: VANCOMYCIN ORAL LIQUID 2,000 MG/80 ML BOTTLE PO ONE (15:54)
--- NOTE | 2020-01-01 15:57 | CT ---
EXAMINATION: CT of the abdomen and pelvis with IV contrast INDICATION: Left lower quadrant pain. COMPARISON: September 09, 2019 TECHNIQUE: Axial CT scan of the abdomen and pelvis was obtained after the uneventful administration of intravenous contrast. Coronal and sagittal reformats were provided. This CT exam was performed using one or more of the following dose reduction techniques: Automated exposure control, Adjustment of the mA and/or kV according to patient size, Use of iterative reconstruction technique FINDINGS: VISUALIZED LOWER THORAX: Lung bases are clear. Heart is enlarged. LIVER: Incompletely characterized hypodense lesion in the right hepatic lobe measuring 1.9 cm (series 2, image 18) GALLBLADDER AND CBD: Normal. PANCREAS: Normal. SPLEEN: Normal. ADRENAL GLANDS: Normal. KIDNEYS AND URETERS: There is a right renal cyst measuring 4.7 cm. There is moderate right hydronephrosis and hydroureter with an obstructing calculus in the right UVJ measuring 4 mm. There is prominence of the proximal left ureter with severe left hydronephrosis. The remainder of the left ureter is also dilated. There is however no obstructing renal calculus present. The degree of hydronephrosis is similar to prior. URINARY BLADDER: Stable 9 mm calculus within the urinary bladder. PELVIS: Enlarged prostate measuring 5.5 cm. Calcifications are present within the prostate. There is extensive colonic diverticulosis without diverticulitis of the proximal sigmoid colon. There some adjacent prominent lymph nodes seen. BOWEL: Gas and stool throughout the colon. Normal appendix No dilated loops of small bowel. No obstruction. AORTA AND VASCULATURE: Scattered atheromatous changes throughout the abdominal aorta. No aneurysm. LYMPH NODES: There are a couple of prominent lymph nodes noted adjacent to the area of diverticulitis in the sigmoid colon. ABDOMINAL WALL: Normal. MESENTERY/ASCITES: Normal. OSSEOUS STRUCTURES: Grade 1 anterolisthesis of L4 on L5. Moderate degenerative changes of both hips. There are multilevel degenerative changes throughout the spine OTHER: N/A IMPRESSION: 1. Right-sided hydronephrosis and hydroureter with obstructing calculus at the right UVJ measuring 4 mm. 2. There is redemonstration of hydronephrosis of the left kidney with persistent dilation of the left ureter. This is unchanged dating back to 2016. 3. The urinary bladder is dilated. There is questionable wall thickening. This could relate to chronic outlet obstruction. There is an enlarged prostate which favors the diagnosis of chronic outlet obstruction. 4. There is extensive diverticulosis with an area of fat stranding in the proximal sigmoid colon suspicious for acute uncomplicated diverticulitis. There are couple of prominent lymph nodes noted adjacent to the area of fat stranding. For this reason, a colonoscopy is recommended when the patient's acute symptoms resolve. Electronically signed by: Agusto Gastelum MD 01/01/2020 3:55 PM CDT
--- NOTE | 2020-01-01 16:22 | HP ---
SUPERVISING PHYSICIAN: Lucius Valdez MD CHIEF COMPLAINT: General malaise. HISTORY OF PRESENT ILLNESS: Mr. Peña is a 79-year-old male patient who has a history of cystitis recently being treated with Bactrim and then changed to amoxicillin within the last 3 weeks. He was 2 days away from completing his antibiotic therapy when he started having some left lower quadrant pain and some loose stools. He presented to the Emergency Room today because he just was not feeling well and had been having some brown liquid diarrhea over the last 4 days, but reported no actual nausea or vomiting. His initial labs showed white count 22,800 with 9% bands. Vital signs showed he was hemodynamically stable and afebrile with temperature 97.6, pulse 80, blood pressure 151/82, saturation 97% on room air. Chemistries showed mildly low potassium of 3.3, but he did have a lactic acid elevated at 2.6. Liver functions were within normal limits. Urinalysis showed trace leukocyte esterase, otherwise within normal limits. CT of the abdomen and pelvis with contrast and per radiologic interpretation there was note of some right sided hydronephrosis and hydroureter with obstructing calculus at the right UVJ measuring 4 mm. There is also re-demonstration of hydronephrosis in the left kidney with persistent dilation of the left ureter, unchanged from 2016. The urinary bladder looked to be dilated with questionable wall thickening with possible chronic outlet obstruction. There was an enlarged prostate favoring chronic outlet obstruction. Also of note on the CT of the abdomen was extensive diverticulosis and fat stranding in the proximal sigmoid colon suspicious for acute uncomplicated diverticulitis. There were a couple of prominent lymph nodes noted adjacent to the area of fat stranding. Given his sepsis as noted with his leukocytosis, bandemia and lactic acid levels, the patient was also tested for C. difficile given he was having some diarrhea and was found to be positive for both C. difficile antigen and toxin. He is now going to be admitted for initiation of treatment of C. difficile colitis along with concern for complicated cystitis. He was admitted in stable condition. PAST MEDICAL HISTORY: 1. Hypertension. 2. Dementia. 3. Essential tremors. 4. Gastroesophageal reflux disease. PAST SURGICAL HISTORY: 1. Hernia repair. 2. Femur bone growth removed. 3. Three episodes of ureteral stone baskets to remove ureteral stones. HOME MEDICATIONS: 1. Flomax 0.4 mg daily. 2. Propranolol 10 mg q.i.d. as needed. 3. Finasteride 5 mg daily. 4. Amoxicillin 3 week course 875 mg b.i.d. ALLERGIES: TUNA. FAMILY HISTORY: Positive for strokes. SOCIAL HISTORY: The patient is retired. He does not drink alcohol or use illicit drugs. He is and lives by himself. He does not use any tobacco products. REVIEW OF SYSTEMS: CONSTITUTIONAL: Negative for any fevers, chills. HEENT: Negative for blurred vision, headaches, sore throats, earaches, nasal congestion, vision changes. RESPIRATORY: Negative for coughing, wheezing or shortness of breath. CARDIOVASCULAR: Negative for chest pain, palpitations or syncopal episodes. GASTROINTESTINAL: As noted in history of present illness, some abdominal pain more so in the lower quadrant and suprapubic region, but denies any nausea or vomiting. GENITOURINARY: Negative for dysuria, hematuria, polyuria. MUSCULOSKELETAL: Negative for back pain, joint pain, muscle pain. SKIN: Negative for lesions, rashes, moles or unexplained changes. NEUROLOGIC: Negative for headaches, numbness, paresthesias, tingling, vision changes, syncopal episodes or other neurologic deficits. HEMATOLOGIC: Negative for easy bruising, unexplained bleeding or transfusion reactions. PHYSICAL EXAMINATION: VITAL SIGNS: Temperature 98.4, pulse 76, blood pressure 129/76, respirations 18, saturation 98% on room air. GENERAL: The patient looks to be resting comfortably, no obvious acute distress. He is alert. HEENT: Tympanic membranes clear bilaterally. He does have poor dentition. NECK: Supple, nontender with full range of motion. No jugular venous distention noted. RESPIRATORY: Lung sounds are clear to auscultation bilaterally without any rhonchi, wheezes or rales. CARDIOVASCULAR: Regular rate and rhythm without any appreciable murmurs, gallops, or rubs. ABDOMEN: Soft with some tenderness noted to the suprapubic region. No rebound tenderness. No peritoneal signs. Bowel sounds active. RECTAL: Deferred. BACK: No CVA or vertebral tenderness. EXTREMITIES: There is no cyanosis, clubbing or edema. NEUROLOGIC: Cranial nerves II-XII are grossly intact. No motor or sensory deficits noted. The patient is alert and oriented times three. SKIN: Warm, pink and dry. LABORATORY: White count 22,800, hemoglobin 13.7, hematocrit 41.1. RBC indices indicate a macrocytosis. Platelet count 275,000. Differential did show a left shift with increased band count. Chemistries showed mildly low potassium of 3.3 with BUN 21, creatinine 1.3. Lactic acid was elevated at 2.6, calcium normal at 9.9 with liver functions all within normal limits. Urinalysis showed a trace of leukocyte esterase, otherwise within normal limits. MICROBIOLOGY: Blood cultures pending. C. difficile toxin A and B positive for both antigen and toxin. Stool cultures pending. RADIOLOGY: CT of the abdomen and pelvis with contrast per radiologic interpretation showed right sided hydronephrosis and hydroureter with obstructing calculus at the right UVJ measuring 4 mm with chronic hydronephrosis of the left kidney with persistent dilation of the left ureter and note of a enlarged prostate with questionable thickening of the bladder. There was note of extensive diverticulosis with an area of fat stranding in the proximal sigmoid colon suspicious for acute uncomplicated diverticulitis. There were a couple of prominent lymph nodes noted adjacent to the area of fat stranding. Chest x-ray pending. ASSESSMENT: 1. Sepsis secondary to C. difficile colitis. 2. History of chronic urinary tract infection with cystitis and multiple kidney stones with probably chronic prostatitis, recent long-term treatment of 3 weeks with amoxicillin. 3. Chronic diverticulitis, likely secondary to underlying C. difficile infection. 4. Lactic acidosis secondary to sepsis with bandemia. 5. Chronic gastroesophageal reflux disease. 6. Hypertension. 7. History of essential tremors on propranolol. 8. History of sepsis with recent treatment in the hospital in August secondary to Enterococcus facialis, pansensitive with associated pyelonephritis. 9. Ureteral stone with hydronephrosis on the right with chronic hydronephrosis on the left, followed by Urology in [place], Dr. Rosa Gillette, office number is . PLAN: Mr. Peña is going to be admitted for treatment of colitis secondary to C. difficile infection and chronic antibiotic treatment. Cannot completely rule out abdominal infection associated with diverticulitis complications with is white count and bandemia. Therefore, we will start him on some Zosyn to treat broad spectrum given that he has had a previous episodes similar to this in August. At that time, he was negative for C. difficile, but is positive at this admission. We will start him on oral vancomycin 125 mg q.4h. I think he will need to be on a 10-day course once discharged. He will be on DVT prophylaxis with Lovenox. He will be on proton pump inhibitor with Protonix for gastric protection. He will be started on Align. We will resume his home medications once those have been updated and verified. We probably need to touch base with his urologist as listed above to see if he wants anything different as far as the findings on CT or see if we can find a previous CT. It probably would not be a bad thing to talk to Dr. Vasquez given the multiple infectious origins of his C. difficile along with questionable abdominal infection with diverticulitis. I have ordered a chest x-ray to cover the sepsis and he will be berger cultured with urine culture, blood cultures. I would anticipate his length of stay to be at least 2 to 3 days. He will need to be in overnight in case we need to do anymore imaging and for treatment of diverticulitis which we can advance his diet as he tolerates. We may need to get a consultation with Dr. Cole, but at this point he seems to be pretty stable. I think Dr. Cole is operations officer trust department starting Thursday. Until the patient can transition to outpatient management, we will continue to monitor and treat as needed. #[id number] MTDD
[2020-01-01] MEDS ORDERED: ONDANSETRON INJ 4 MG/2 ML VIAL IV PRN (18:15)
[2020-01-01] MEDS ORDERED: MORPHINE SULFATE INJ 10 MG/ML VIAL IV PRN (18:15)
[2020-01-01] MEDS ORDERED: SODIUM CHLORIDE 0.9% (FLUSH) 10 ML SYG IV PRN (18:15)
[2020-01-01] MEDS ORDERED: ACETAMINOPHEN 325 MG TAB PO PRN (18:15)
[2020-01-01] MEDS ORDERED: IV SET AND CAP CHANGE INJ INJ SCH (18:30)
[2020-01-01] MEDS ORDERED: PIPERACILLIN/TAZOBACTAM 3.375 GM VIAL IVPB ONE ×3 (19:02→20:13)
[2020-01-01] MEDS ORDERED: SODIUM CHLORIDE 0.9% 100ML 100 ML IVPB ONE ×3 (19:03→20:14)
[2020-01-01] MEDS: PIPERACILLIN/TAZOBACTAM 3.375 GM in SODIUM CHLORIDE 0.9% 100ML 100 ML IVPB SCH ×2 (19:06→23:55)
[2020-01-01] MEDS: KCL 20MEQ/D5 1/2NS 1,000 ML IVS PRN (19:07)
[2020-01-01] MEDS ORDERED: PROPRANOLOL HCL 10 MG PO PRN (20:13)
--- NOTE | 2020-01-01 20:59 | RAD ---
EXAM: XR Chest, 2 Views CLINICAL HISTORY: The patient is 79 years old and is Male; Sepsis TECHNIQUE: Two views of the chest. COMPARISON: September 11, 2019. FINDINGS: Lungs: No pulmonary vascular congestion or consolidation. Pleural space: Unremarkable. No pneumothorax. Heart: Unremarkable. No cardiomegaly. Mediastinum: Unremarkable. Bones/joints: Vertebral osteophytes. Degenerative changes in the right AC joint. Old healed fracture deformity left clavicle. Upper abdomen: No free air in the visualized upper abdomen. IMPRESSION: No acute cardiopulmonary process identified. Electronically signed by: Cristal Bauman MD 01/01/2020 8:58 PM CDT
[2020-01-01] MEDS ORDERED: ENOXAPARIN SODIUM 40 MG/0.4 ML SYG SUBCU SCH (21:00)
[2020-01-01] MEDS ORDERED: PROPRANOLOL HCL 20 MG TAB ONE (21:49)
[2020-01-01] MEDS: VANCOMYCIN ORAL LIQUID 2,000 MG/80 ML BOTTLE PO SCH ×2 (21:53→23:52)
[2020-01-02] MEDS: VANCOMYCIN ORAL LIQUID 2,000 MG/80 ML BOTTLE PO SCH ×3 (05:39→17:49)
[2020-01-02] MEDS: PIPERACILLIN/TAZOBACTAM 3.375 GM in SODIUM CHLORIDE 0.9% 100ML 100 ML IVPB SCH ×3 (05:41→17:49)
[2020-01-02] MEDS ORDERED: PANTOPRAZOLE SODIUM IV 40 MG VIAL IV SCH (06:30)
[2020-01-02] MEDS: KCL 20MEQ/D5 1/2NS 1,000 ML IVS PRN (08:42)
[2020-01-02] MEDS ORDERED: BIFIDOBACTERIUM INFANTIS 4 MG CAP PO SCH (09:00)
[2020-01-02] MEDS ORDERED: TAMSULOSIN 0.4 MG CAP PO SCH (09:00)
[2020-01-02] MEDS ORDERED: FINASTERIDE 5 MG TAB PO SCH (09:00)
[2020-01-02] MEDS ORDERED: PROPRANOLOL HCL 20 MG TAB PO PRN (09:30)
--- NOTE | 2020-01-02 11:22 | US ---
EXAM DESCRIPTION: Abdomen,Complete: Ultrasound. CLINICAL HISTORY: 79 years Male abd pain; colitis; C-diff; chronic prostatitis COMPARISON: CT scan abdomen December 31 and September 08 TECHNIQUE: Transabdominal scanning: grayscale and Doppler modes. FINDINGS: Gallbladder: Normal size; 1.2 cm 1.4 cm echogenic stones with acoustic shadowing No fluid around the gallbladder. No wall thickening. 1.9 mm. Non-tender with transducer pressure. Common bile duct: caliber 5.0 mm within normal limits. Liver: normal echogenicity; 2 cysts in the left hepatic lobe measuring 1.5 cm and 2.9 cm. Contour liver capsule smooth where seen. No fluid around the liver. Intrahepatic biliary ducts normal caliber. Doppler hepatopedal flow and normal caliber portal vein 8.4 mm.. Long axis right lobe 14.9 cm. Pancreas: normal size and echogenicity. Duct not seen. Complete abdominal aorta: Normal caliber from the proximal segment to the distal bifurcation.. IVC: visualized and normal caliber. Right kidney: long axis measures 10.9 cm; volume 211.5 mL. Heterogeneous echogenicity of the cortex most likely related to aging. Normal cortical thickness. 5.4 x 4.9 cm simple cyst lateral cortex. Nonvascular. No echogenic stones, mild hydronephrosis. Left kidney: long axis measures 12.1 cm; volume 150.8 mL.. Heterogeneous echogenicity of the cortex most likely related to aging. Normal cortical thickness. No echogenic stones; moderate hydronephrosis, including renal pelvis and proximal left ureter. Spleen: Normal. No focal lesions.. Mild lobulation of the capsule. 10.7 cm long axis. Other: None. IMPRESSION: 1. Cholelithiasis. Nontender with no wall thickening or fluid. Common bile duct normal caliber. Normal size of the spleen with no focal lesions but lobulated capsule. 2. Bilateral renal hydronephrosis more left than right with dilated left pelvis and proximal left ureter visualized. 5.4 cm cyst right kidney. Age-related changes in the cortex. Normal caliber of the proximal abdominal aorta and IVC. 3. At least 2 cysts in the left lobe of the liver. Normal size. Physiologic vascularity. Electronically signed by: Vidal Comer MD 01/02/2020 11:21 AM CDT
[2020-01-02 15:43] VITALS: TEMP 97.6
[2020-01-02 19:34] VITALS: BP 119/46; O2SAT 97
--- NOTE | 2020-01-04 08:36 | DS ---
SUPERVISING PHYSICIAN: Alvin Barraza MD ADMISSION DIAGNOSIS: 1. Sepsis secondary to C. difficile colitis. 2. History of chronic urinary tract infection with cystitis and multiple kidney stones with probably chronic prostatitis, recent long-term treatment of 3 weeks with amoxicillin. 3. Chronic diverticulitis, likely secondary to underlying C. difficile infection. 4. Lactic acidosis secondary to sepsis with bandemia. 5. Chronic gastroesophageal reflux disease. 6. Hypertension. 7. History of essential tremors on propranolol. 8. History of sepsis with recent treatment in the hospital in August secondary to Enterococcus facialis, pansensitive with associated pyelonephritis. 9. Ureteral stone with hydronephrosis on the right with chronic hydronephrosis on the left, followed by Urology in [place], Dr. Rosa Gillette, office number is . DISCHARGES DIAGNOSIS: 1. Sepsis secondary to multiple sources of infection, mainly C. difficile, chronic prostatitis and diverticulitis with a lactic acid of 2.6, WBCs 22.8 and bandemia of 9. 2. Bilateral hydronephrosis. 3. Clostridium difficile colitis. 4. History of chronic urinary tract infections with cystitis and multiple kidney stones with probable chronic prostatitis, recently being on long-term treatment with amoxicillin. 5. Diverticulitis. 6. Lactic acidosis secondary to sepsis with bandemia. 7. Gastroesophageal reflux disease. 8. Hypertension. 9. Essential tremors on propranolol. 10. Recent hospitalization for sepsis secondary to Enterococcus facialis, which was pansensitive with associated pyelonephritis in August of 2019. HISTORY OF PRESENT ILLNESS This is a 79-year-old male patient who has a history of cystitis recently being treated with Bactrim and then changed to amoxicillin within the last 3 weeks. He had almost completed his antibiotic therapy and went to the Emergency Room having some left lower quadrant pain and some loose stools. He presented to the Emergency Room because he just was feeling poorly and having some liquid brown stool. There was nausea or vomiting. His initial vital signs were stable. His chemistry showed low potassium of 3.3, lactic acid 2.6. Liver functions were within normal limits. Urinalysis showed trace leukocyte esterase, otherwise within normal limits. CT of the abdomen and pelvis with contrast and per radiologic interpretation showed there was note of some right sided hydronephrosis and hydroureter with obstructing calculus at the right UVJ measuring 4 mm. There was also re-demonstration of hydronephrosis in the left kidney with persistent dilation of the left ureter, unchanged from 2016. The urinary bladder was distended with questionable wall thickening with possible chronic outlet obstruction. There was an enlarged prostate favoring chronic outlet obstruction. Also of note on the CT of the abdomen was extensive diverticulosis and fat stranding in the proximal sigmoid colon suspicious for diverticulitis. There were a couple of prominent lymph nodes noted adjacent to the area of fat stranding. Given his sepsis as noted with leukocytosis, bandemia and diarrhea that positive for C. difficile antigen and toxin, he was admitted to the hospital for of treatment of C. difficile colitis along with concern for complicated cystitis. He was admitted in stable condition. HOSPITAL COURSE: The patient was admitted and given oral vancomycin as well as Zosyn. He had a difficult time urinating and a Morales catheter was actually placed where he had 800 cc out although he had been going to the bathroom quite frequently. He was unable to empty his bladder. He was started on Align, DVT prophylaxis as well as Protonix for ulcer prophylaxis. At this point, due to the multiple sources of infection as well as bilateral hydronephrosis with failed outpatient treatment, he will be transferred to [facility]. Dr. Perez has accepted the patient in transfer due to his multiple comorbidities and infectious processes. Dr. Perez has agreed to consult GI as well as Urology after transfer. LABORATORY: WBCs came down to 15,900. Hemoglobin and hematocrit are stable at 12.3 and 36.6. Lactic acid did come down to 1.1 after fluids. Blood cultures were done. An abdominal ultrasound was obtained this morning. It showed 1) Cholelithiasis, nontender with no wall thickening or fluid. Common bile duct normal caliber. Normal size of the spleen and no focal lesions, but lobulated capsule. 2) Bilateral renal hydronephrosis, more left than right with dilated left pelvis and proximal left ureter, visualized 5.4 cm cyst of the right kidney, age-related changes in the cortex, normal caliber of the proximal abdomen aorta and inferior vena cava. 3) At least 2 cysts in the left lobe of the liver, normal size with physiologic vascularity. DISCHARGE PLAN: the patient will be discharged and transferred to [facility] in [place]. he will be transferred to a PCU and is in stable condition. The list of his home medications as well as the medications that we have put him on will be sent with the patient as well as his labs and CD with a copy of his radiology reports. After his discharge from [facility], he is to followup with Dr. Hadley. DISCHARGE MEDICATIONS: 1. Propranolol. 2. Tamsulosin. 3. Finasteride. 4. Align. 5. Vancomycin liquid. 6. Zosyn. #[id number] [facility]
== END 2020-01-02 19:20 | disposition short-term general hospital (02) | DRG 872 ==
LOC: ER 14:11 → MS 16:20 → OBSVTOIN 16:20
PROVIDERS: ADMIT Nurse Practitioner Family; ATTEND Nurse Practitioner Acute Care
PROC: BW211ZZ Computerized Tomography (CT Scan) of Abdomen and Pelvis using Low Osmolar Contrast (ICD-10-PCS; principal; 2020-01-01)
DX: A41.9 Sepsis, unspecified organism (principal); A04.72 Enterocolitis due to Clostridium difficile, not specified as recurrent; K57.32 Diverticulitis of large intestine without perforation or abscess without bleeding; N13.2 Hydronephrosis with renal and ureteral calculous obstruction; E87.2 Acidosis; N41.1 Chronic prostatitis; F03.90 Unspecified dementia, unspecified severity, without behavioral disturbance, psychotic disturbance, mood disturbance, and anxiety; K21.9 Gastro-esophageal reflux disease without esophagitis; I10 Essential (primary) hypertension; G25.0 Essential tremor; Z79.2 Long term (current) use of antibiotics; Z87.440 Personal history of urinary (tract) infections; Z79.899 Other long term (current) drug therapy

== ENCOUNTER → 2020-01-10 | Outpatient (CLI) | payer MEDICARE | LOC: GMAE 16:51 | PROVIDERS: ATTEND Family Medicine | DX: A41.9 Sepsis, unspecified organism (principal) ==